=== PATIENT | male | born 1955 | race Caucasian/White ===

== ENCOUNTER 2022-07-27 17:06 | Emergency (ER) | payer OTHER, MEDICARE ==
[2022-07-27] MEDS ORDERED: Cephalexin 500 MG Cap ONE (18:00)
== END 2022-07-27 18:10 | disposition home or self-care (01) ==
LOC: LB.ED 17:06
DX: S00.01XA Abrasion of scalp, initial encounter (principal); W01.198A Fall on same level from slipping, tripping and stumbling with subsequent striking against other object, initial encounter
CPT/HCPCS: 99283; A9270-GY